=== PATIENT | male | born 1965 | race African-American/Black ===

== ENCOUNTER 2017-06-30 15:49 | Emergency (ER) | payer SELFPAY ==
[~2017-06-30 15:49] MED LIST: ISOVUE-370 76%-LOCM 1 ML ONE
[2017-06-30] MEDS ORDERED: niCARdipine 20MG In NaCl 20 MG/200 ML BAG ONE (16:17)
--- NOTE | 2017-06-30 16:24 | CT ---
NONCONTRAST HEAD CT: HISTORY: Stroke alert. Right-sided weakness last seen normal 20 minutes ago. Teeth numbness, starting 4 days ago. COMPARISON: None. TECHNIQUE: A noncontrast head CT is performed from the skull base to the skull vertex. FINDINGS: No parenchymal hemorrhage. No extraaxial hematoma. No midline shift. Basilar cisterns are patent. Brain volume is age appropriate. Cortical castorena-white matter differentiation appears to be preserved. Insular ribbon sign is preserved. Ventricles and sulci are patent and symmetric. There is hyperdensity involving the mid to distal left M1 segment along with hyperdensity in the left Sylvian fissure suggesting a left M1 thrombus. Better interrogation with CT angiogram of the head a nd neck as well as perfusion imaging is recommended. There is paranasal sinus disease. Calvarium is intact. Adequate aeration of the sinuses and mastoid air cells. IMPRESSION: 1. No hemorrhage. 2. No large territory infarction at this time. 3. Hyperdensity in the left middle cerebral artery suggesting thrombus. Better interrogation with C T angiogram of the head and neck as well as CT perfusion imaging is recommended. Results of the study discussed with Dr. Martinez 06/30/17 at 3:57 p.m. CODE CR POS: OFF
[2017-06-30 16:55] LABS: Hemoglobin 17.2 g/dL (14.0-18.0); Mean Corpuscular HGB CONC 33.8 g/dL (32.0-36.0); Mean Corpuscular Hemoglobin 29.7 pg (27.0-31.0); Mean Corpuscular Volume 87.7 fl (80.0-94.0); Mean Platelet Volume 7.4 fL (7.4-10.4); Platelet Count 271 thou/uL (130-400); Red Blood Cell (RBC) Count 5.79 mill/uL (4.70-6.10); White Blood Cell (WBC) Count 5.8 thou/uL (4.8-10.8)
--- NOTE | 2017-06-30 17:00 | CT ---
CTA NECK WITH 3D VOLUME RENDERING CTA BRAIN WITH 3D VOLUME RENDERING CTA BRAIN PERFUSION. 06/30/16 CLINICAL HISTORY: Right sided weakness. FINDINGS: There is limited assessment of the vasculature due to prominent beam attenuation from overlying body wall soft tissues which decreases sensitivity of evaluation. The imaged aortic arch is grossly patent as are the origins of the brachiocephalic trunk and left common carotid artery. There is calcificati on at the origin of the left subclavian artery with a mild to moderate degree of focal stenosis. Limi kizzy evaluation of the bilateral common carotid arteries reveals no obvious high grade stenosis or occ lusion. There is atherosclerotic calcification at each carotid bulb without high grade focal stenosis . The bilateral cervical ICA are grossly patent. The proximal mid vertebral arteries are not reliably assessed due to beam attenuation artifact. The visualized distal bilateral vertebral arteries reveal no definite high stenosis or occlusion. Partial termination of distal left vertebral artery and PICA. The basilar artery demonstrates a moderate charley gth segment of diminished to absent contrast concerning for basilar artery thrombosis. There are bila teral posterior communicating arteries which likely provides supply to the bilateral posterior cerebr al arteries. No definitive high grade stenosis of either MCA or ROSANNA. ACOM is grossly unremarkable. Evaluation of the CTA brain perfusion reveals no significant penumbra or completed infarction of the cerebral hemispheres within the bilateral MCA territories. IMPRESSION: Scattered at atherosclerotic vascular disease. Disease is likely most pronounced at the mid to distal basilar artery. Note is made that there is marked limitation due to beam attenuation, although the p ossibility of a moderate segment of acute basilar artery thrombus is not excluded. The appearance of the CT exam suggests supply to the posterior circulation, bilaterally via the anterior circulation th rough posterior communicating arteries. Scattered atherosclerotic vascular disease of the neck. No obvious penumbra or completed infarction of the bilateral cerebral hemispheres within the MCA dis tributions. Telephone call of findings placed to the neurosurgeon program professional, Jim Leal, 1610 hours, 06/30/17. Code CR POS: [facility]
[2017-06-30 17:05] LABS: ALT (SGPT) 26 U/L (8-55); AST (SGOT) 32 U/L (5-34); Alkaline Phosphatase 69 U/L (40-150); Anion Gap 12 mmol/L (10-20); BUN (Urea Nitrogen) 11 mg/dL (8.9-20.6); Bilirubin, Total 0.7 mg/dL (0.2-1.2); Calc. Creatinine Clearance 0 mL/min (70-130); Carbon Dioxide 21 mmol/L (22-29); Chloride 107 mmol/L (98-107); Estimated GFR-MDRD 61; Globulin 3.2 g/dL (2.4-3.5); Glucose 101 mg/dL (70-105); Potassium 4.4 mmol/L (3.5-5.1); Protein, Total 7.2 g/dL (6.0-8.3); Sodium 136 mmol/L (136-145)
[2017-06-30 17:15] LABS: Troponin I 0.599 ng/mL (< 0.028)
[2017-06-30 17:20] LABS: #Basophils 0.1 thou/uL (0.0-0.2); #Eosinphils 0.1 thou/uL (0.0-0.7); #Lymphocytes 2.5 thou/uL (1.20-3.40); #Monocytes 0.8 thou/uL (0.11-0.59); #Neutrophils 2.2 thou/uL (1.40-6.50); %Basophils 0.9 % (0.0-1.0); %Eosinophils 2.4 % (0.0-10.0); %Lymphocytes 44.3 % (21.0-51.0); %Monocytes 13.6 % (0.0-10.0); %Neutrophils 38.7 % (42.0-75.0); Lymphocytes 38 % (21-51); MDiff Complete? YES; Monocytes 14 % (0-10); Neutrophil 37 % (42-75); PLT Morphology Comment Appears Adequate; RBC Morphology Normal; Reactive Lymphocytes 10 % (0-10)
[2017-06-30] MEDS ORDERED: Enoxaparin Sodium 40 MG/0.4 ML SYRINGE ONE ×2 (17:48→18:18)
[2017-06-30] MEDS ORDERED: Enoxaparin Sodium 100 MG/ML SYRINGE ONE ×2 (17:48→18:18)
[2017-06-30 18:10] LABS: INR-International Normal Ratio 1.1; PTT 33.8 SEC (22.9-36.1); Prothrombin Time 13.9 SEC (12.0-14.7)
== END 2017-06-30 18:40 | disposition left against medical advice (07) ==
LOC: ERS 15:49
DX: I21.4 Non-ST elevation (NSTEMI) myocardial infarction (principal); I16.1 Hypertensive emergency; F17.210 Nicotine dependence, cigarettes, uncomplicated
CPT/HCPCS: 0042T; 36415; 70450; 70496; 70498; 80053; 82553; 83880; 84484; 85025; 85610; 85730; 93005; 96365; 96366; 99406; J1650

== ENCOUNTER 2017-12-16 09:17 | Emergency (ER) | payer SELFPAY ==
[2017-12-16 10:04] LABS: #Basophils 0.1 thou/uL (0.0-0.2); #Eosinphils 0.1 thou/uL (0.0-0.7); #Lymphocytes 2.5 thou/uL (1.20-3.40); #Monocytes 0.7 thou/uL (0.11-0.59); %Basophils 1.3 % (0.0-1.0); %Eosinophils 1.7 % (0.0-10.0); %Monocytes 12.4 % (0.0-10.0); %Neutrophils 37.6 % (42.0-75.0); Hemoglobin 17.1 g/dL (14.0-18.0); Mean Corpuscular HGB CONC 34.8 g/dL (32.0-36.0); Mean Corpuscular Hemoglobin 29.5 pg (27.0-31.0); Mean Corpuscular Volume 84.8 fL (78.0-98.0); Mean Platelet Volume 7.3 fL (7.4-10.4); Platelet Count 230 thou/uL (130-400); RBC Distribution Width 13.2 % (11.5-14.5); Red Blood Cell (RBC) Count 5.82 mill/uL (4.70-6.10); White Blood Cell (WBC) Count 5.4 thou/uL (4.8-10.8)
--- NOTE | 2017-12-16 10:13 | CT ---
CT BRAIN PERFORMED WITHOUT CONTRAST ENHANCEMENT: History: Dizziness, difficulty remembering, reports a fall yesterday. reports slurred speech, we akness on right side. Comparison: 06-30-17 FINDINGS: The ventricular and cisternal system is within normal limits. There are no signs of intracerebral hem orrhage or extraaxial fluid collections. Mastoid air cells are clear. Minimal mucosal change within t he maxillary sinuses. IMPRESSION: No acute intracranial abnormalities. POS: [facility]
[2017-12-16 10:16] LABS: ALT (SGPT) 41 U/L (8-55); AST (SGOT) 39 U/L (5-34); Alkaline Phosphatase 73 U/L (40-150); Anion Gap 14 mmol/L (10-20); BUN (Urea Nitrogen) 19 mg/dL (8.9-20.6); Bilirubin, Total 1.3 mg/dL (0.2-1.2); CK (CPK) 1460 U/L (30-200); Calc. Creatinine Clearance 0 mL/min (70-130); Calcium 9.9 mg/dL (7.8-10.44); Carbon Dioxide 29 mmol/L (22-29); Chloride 101 mmol/L (98-107); Estimated GFR-MDRD 64; Globulin 3.6 g/dL (2.4-3.5); Glucose 109 mg/dL (70-105); Potassium 3.8 mmol/L (3.5-5.1); Protein, Total 8.6 g/dL (6.0-8.3); Sodium 140 mmol/L (136-145)
[2017-12-16 10:20] LABS: CKMB 4.6 ng/mL (0-6.6); Troponin I 0.023 ng/mL (< 0.028)
== END 2017-12-16 12:55 | disposition home or self-care (01) ==
LOC: ERS 09:17
DX: I63.9 Cerebral infarction, unspecified (principal); I10 Essential (primary) hypertension; F17.210 Nicotine dependence, cigarettes, uncomplicated; Z79.899 Other long term (current) drug therapy; Z79.82 Long term (current) use of aspirin
CPT/HCPCS: 36416; 70450; 80053; 82550; 82553; 84484; 85025; 93005; 94760

== ENCOUNTER 2018-01-29 17:27 | Emergency (ER) | payer SELFPAY ==
--- NOTE | 2018-01-29 18:08 | RAD ---
RIGHT SHOULDER THREE VIEWS: 01/29/18 HISTORY: Shoulder pain status post fall. There is no signs of fracture or dislocation. IMPRESSION: Negative right shoulder. POS: [facility]
[2018-01-29] MEDS ORDERED: Ketorolac Tromethamine 30 MG/ML VIAL ONE (20:05)
== END 2018-01-29 20:20 | disposition home or self-care (01) ==
LOC: ERS 17:27
DX: M25.511 Pain in right shoulder (principal); F17.210 Nicotine dependence, cigarettes, uncomplicated; F41.9 Anxiety disorder, unspecified; Z79.899 Other long term (current) drug therapy; Z79.82 Long term (current) use of aspirin; Z86.73 Personal history of transient ischemic attack (TIA), and cerebral infarction without residual deficits; W19.XXXA Unspecified fall, initial encounter
CPT/HCPCS: 96372; J1885

== ENCOUNTER 2018-01-31 10:12 | Emergency (ER) | payer SELFPAY ==
[2018-01-31] MEDS ORDERED: HYDROcodone/Acetaminophen 5/325 mg Tablet ONE (10:49)
[2018-01-31 11:04] LABS: #Eosinphils 0.1 thou/uL (0.0-0.7); #Lymphocytes 2.4 thou/uL (1.20-3.40); #Monocytes 0.5 thou/uL (0.11-0.59); #Neutrophils 2.2 thou/uL (1.40-6.50); %Basophils 0.9 % (0.0-1.0); %Eosinophils 2.3 % (0.0-10.0); %Lymphocytes 45.5 % (21.0-51.0); %Monocytes 9.4 % (0.0-10.0); %Neutrophils 41.9 % (42.0-75.0); Hemoglobin 15.2 g/dL (14.0-18.0); Mean Corpuscular HGB CONC 34.2 g/dL (32.0-36.0); Mean Corpuscular Hemoglobin 28.9 pg (27.0-31.0); Mean Corpuscular Volume 84.5 fL (78.0-98.0); Mean Platelet Volume 6.9 fL (7.4-10.4); Platelet Count 326 thou/uL (130-400); Red Blood Cell (RBC) Count 5.26 mill/uL (4.70-6.10); White Blood Cell (WBC) Count 5.3 thou/uL (4.8-10.8)
[2018-01-31 11:40] LABS: ALT (SGPT) 20 U/L (8-55); AST (SGOT) 16 U/L (5-34); Albumin 4.2 g/dL (3.5-5.0); Alkaline Phosphatase 72 U/L (40-150); Anion Gap 11 mmol/L (10-20); BUN (Urea Nitrogen) 13 mg/dL (8.9-20.6); Bilirubin, Total 0.7 mg/dL (0.2-1.2); Calc. Creatinine Clearance 0 mL/min (70-130); Calcium 9.2 mg/dL (7.8-10.44); Carbon Dioxide 28 mmol/L (22-29); Chloride 103 mmol/L (98-107); Estimated GFR-MDRD 81; Globulin 3.1 g/dL (2.4-3.5); Glucose 109 mg/dL (70-105); Potassium 3.7 mmol/L (3.5-5.1); Protein, Total 7.3 g/dL (6.0-8.3); Sodium 138 mmol/L (136-145)
[2018-01-31 11:43] LABS: Troponin I Less than 0.010 ng/mL (< 0.028)
--- NOTE | 2018-01-31 11:59 | CT ---
CT BRAIN WITHOUT CONTRAST: History: Fall. Right sided weakness. FINDINGS: Comparison made with exam of 01-27-18. 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 No dislocation, acute infarct, hemorrhage, midline, or abnormal extraaxial fluid collections are seen. Ventricular size is stable and the basilar cisterns a re patent. The bony calvarium appears intact. The visualized paranasal sinuses and mastoid air cells are well aerated. IMPRESSION: No CT evidence of acute intracranial process. POS: [facility]
== END 2018-01-31 14:15 | disposition home or self-care (01) ==
LOC: ERS 10:12
DX: R53.1 Weakness (principal); I69.392 Facial weakness following cerebral infarction; I10 Essential (primary) hypertension; F17.210 Nicotine dependence, cigarettes, uncomplicated; Z79.82 Long term (current) use of aspirin; Z79.899 Other long term (current) drug therapy; W19.XXXA Unspecified fall, initial encounter
CPT/HCPCS: 36415; 70450; 80053; 82553; 84484; 85025; 93005

== ENCOUNTER 2018-07-07 09:19 | Outpatient (CLI) | payer MEDICAID ==
--- NOTE | 2018-07-07 10:48 | RAD ---
THERE VIEWS RIGHT SHOULDER: Comparison: None. History: Right shoulder pain. FINDINGS: Three views of the right shoulder shows no evidence of acute fracture or dislocation. No degenerative changes are seen. The visualized right thorax is unremarkable. IMPRESSION: No evidence of acute osseous abnormality. POS: [facility]
== END 2018-07-07 09:20 | disposition home or self-care (01) ==
LOC: BICRAD 09:19
PROVIDERS: ATTEND Internal Medicine
DX: M25.511 Pain in right shoulder (principal)

== ENCOUNTER 2018-12-05 12:54 | Outpatient (CLI) | payer OTHER ==
--- NOTE | 2018-12-05 15:15 | MRI ---
NONCONTRAST MRI LUMBAR SPINE: Date: 12/05/18 HISTORY: Hemiplegia, hemiparesis. Patient complains of generalized right-sided weakness and pain. Bilateral hi p pain. COMPARISON: None available. FINDINGS: Exam is mildly limited by technique. Visualized retroperitoneal structures are not well assessed on this exam, no gross abnormality is vis ualized. Conus medullaris is normal in appearance and terminates at the T12-L1 level. There is generalized heterogeneity of the bone marrow. Focus of increased T1 and T2-weighted signal i ntensity is seen in the L3 vertebral body, which may represent a hemangioma versus focal area of fat. L1-2 Level: There is no disc bulge or disc herniation. Central spinal canal and neural foramina are patent. L2-3 Level: There are mild facet degenerative changes. There is no disc bulge or disc herniation, an d the central spinal canal and neural foramina are patent. L3-4 Level: Again, there are mild facet degenerative changes, but there is no significant disc bulge or disc herniation. The central spinal canal and neural foramina are patent. L4-5 Level: No disc bulge or disc herniation, but there are moderate facet hypertrophic changes and mild ligamentous thickening. There is mild narrowing of the central spinal canal with mild to moderat e left-sided neural foraminal narrowing, and mild right-sided neural foraminal narrowing. L5-S1 Level: There is mild loss of intervertebral disc height. There is disc osteophyte complex pres ent which does encroach on the bilateral traversing S1 nerve roots, but does not appear to significan tly displace the nerve roots. There is no significant narrowing of the thecal sac at this level. Face t degenerative changes are present. There is no significant neural foraminal narrowing identified. IMPRESSION: 1. Facet degenerative changes at multiple levels, greatest at the L4-5 level, which results in mild to moderate left-sided neural foraminal narrowing. 2. Disc osteophyte complex at the L5-S1 level which encroaches on the bilateral traversing S1 nerve roots, but does not appear to displace the nerve root. POS: [facility]
--- NOTE | 2018-12-05 15:35 | MRI ---
MRI BRAIN WITHOUT CONTRAST: HISTORY: Hemiplegia and hemiparesis CORRELATION: CT scan from 01/31/2018. FINDINGS: No restricted diffusion is seen. There are multiple foci of T2 prolongation in the periventricular wh ite matter, consistent with chronic small vessel ischemic disease. The ventricular size is appropriate and the basilar cisterns are patent. No evidence of acute infarct, hemorrhage, midline shift or abnormal extra-axial fluid collections is seen. 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 There is mucosal disease in the paranasal sinuses. IMPRESSION: No evidence of acute intracranial process.
== END 2018-12-05 12:55 | disposition home or self-care (01) ==
LOC: BICMRI 12:54
PROVIDERS: ATTEND Anesthesiology Pain Medicine
DX: I69.359 Hemiplegia and hemiparesis following cerebral infarction affecting unspecified side (principal); Z79.891 Long term (current) use of opiate analgesic; Z68.37 Body mass index [BMI] 37.0-37.9, adult; Z82.3 Family history of stroke
CPT/HCPCS: 70551; 72148

== ENCOUNTER 2018-12-24 00:20 | Emergency (ER) | payer OTHER ==
[2018-12-24] MEDS ORDERED: Dexamethasone 10 MG/ML VIAL ONE (00:51)
== END 2018-12-24 01:37 | disposition home or self-care (01) ==
LOC: ERS 00:20
DX: J02.9 Acute pharyngitis, unspecified (principal); I10 Essential (primary) hypertension; F41.9 Anxiety disorder, unspecified; F17.210 Nicotine dependence, cigarettes, uncomplicated; Z86.73 Personal history of transient ischemic attack (TIA), and cerebral infarction without residual deficits
CPT/HCPCS: 87081; 87430; 96372; 99283; J1100

== ENCOUNTER 2019-03-15 20:59 | Emergency (ER) | payer OTHER ==
[2019-03-15] MEDS ORDERED: Dexamethasone 4 mg/ml Vial ONE (22:16)
== END 2019-03-15 22:31 | disposition home or self-care (01) ==
LOC: ERS 20:59
DX: J02.9 Acute pharyngitis, unspecified (principal); R05 Cough; I10 Essential (primary) hypertension; F41.9 Anxiety disorder, unspecified; F17.210 Nicotine dependence, cigarettes, uncomplicated; Z79.82 Long term (current) use of aspirin; Z79.899 Other long term (current) drug therapy; Z86.73 Personal history of transient ischemic attack (TIA), and cerebral infarction without residual deficits
CPT/HCPCS: 87081; 87430; 99283; J1100

== ENCOUNTER 2021-02-19 07:32 | Outpatient (CLI) | payer OTHER ==
[2021-02-19 10:31] LABS: Hemoglobin 14.9 g/dL (13.5-17.5); Mean Corpuscular Hemoglobin 28.1 pg (27.0-33.0); Mean Corpuscular Volume 80.2 fl (81.2-95.1); Mean Platelet Volume 10.3 fl (7.4-10.4); Platelet Count 331 10x3/uL (150-450); RBC Distribution Width 14.7 % (11.5-14.5); Red Blood Cell (RBC) Count 5.31 10x6/uL (4.32-5.72)
[2021-02-19 10:50] LABS: Anion Gap 13 mmol/L (10-20); BUN (Urea Nitrogen) 10 mg/dL (8.4-25.7); Calc. Creatinine Clearance 0 mL/min (70-130); Calcium 9.4 mg/dL (7.8-10.44); Carbon Dioxide 27 mmol/L (22-29); Chloride 104 mmol/L (98-107); Glucose 158 mg/dL (70-105); Potassium 4.4 mmol/L (3.5-5.1); Sodium 140 mmol/L (136-145)
[2021-02-19 23:38] LABS: SARS-CoV-2 PCR by NAA Not Detected (NotDetected)
== END 2021-02-19 07:33 | disposition home or self-care (01) ==
LOC: LABBT 07:32
PROVIDERS: ATTEND Urology
DX: Z01.818 Encounter for other preprocedural examination (principal); N48.1 Balanitis; Z20.822 Contact with and (suspected) exposure to COVID-19
CPT/HCPCS: 80048; 85027; 93005; 93010; U0003; U0005

== ENCOUNTER 2021-02-21 06:19 | Day surgery (SDC) | payer OTHER ==
[2021-02-20 13:05] VITALS: BMI 41.1
[2021-02-21] MEDS ORDERED: Fentanyl 100 MCG/2 ML VIAL ONE (07:06)
[2021-02-21] MEDS ORDERED: Midazolam HCl 2 mg/2 ml Vial ONE (07:06)
[2021-02-21] MEDS ORDERED: HYDROmorphone 2 MG/ML VIAL ONE (07:07)
[2021-02-21] MEDS ORDERED: ceFAZolin 2 GM/DEX 5% 100 ML BAG ONE (07:24)
[2021-02-21] MEDS ORDERED: Bupivacaine 0.25% HCL 30 ML VIAL ONE ×2 (07:59→08:10)
[2021-02-21] MEDS ORDERED: Dexamethasone 20 MG/5 ML VIAL ONE (08:16)
[2021-02-21] MEDS ORDERED: Ondansetron PF 4 MG/2 ML Vial ONE (08:16)
[2021-02-21] MEDS ORDERED: Glycopyrrolate 0.2 MG/ML 5 ML SYRINGE ONE (08:16)
[2021-02-21] MEDS ORDERED: PHENYLEPHRINE-NS 100 MCG/ML 10 ML SYRINGE ONE (08:16)
[2021-02-21] MEDS ORDERED: Lidocaine 1% PF 5 ML VIAL ONE (08:16)
[2021-02-21] MEDS ORDERED: PROPOFOL 200 MG/20 ML VIAL ONE (08:16)
[2021-02-21] MEDS ORDERED: Bacitracin Zinc Ointment 30 gm TUBE ONE (08:40)
== END 2021-02-21 10:40 | disposition home or self-care (01) ==
LOC: SDC 06:19
PROVIDERS: ATTEND Urology
PROC: 0VTTXZZ Resection of Prepuce, External Approach (ICD-10-PCS; principal; 2021-02-21)
DX: N47.1 Phimosis (principal); N48.1 Balanitis; I10 Essential (primary) hypertension; F17.200 Nicotine dependence, unspecified, uncomplicated; Z79.82 Long term (current) use of aspirin; Z79.84 Long term (current) use of oral hypoglycemic drugs; Z79.899 Other long term (current) drug therapy
CPT/HCPCS: J1100; J1170; J2250; J2405; J2704; J3010; S0020

== ENCOUNTER 2023-02-17 10:55 | Outpatient (CLI) | payer OTHER | END 2023-02-17 10:56 | disposition home or self-care (01) | PROVIDERS: ATTEND Student in an Organized Health Care Education/Training Program | DX: R26.89 Other abnormalities of gait and mobility (principal) ==

== ENCOUNTER 2023-04-14 17:31 | Emergency (ER) | payer OTHER ==
[2023-04-14 18:24] LABS: Bacteria/HPF None Seen HPF (None Seen); Bilirubin Negative (Negative); Blood, Urine Negative (Negative); Clarity Clear (Clear); Glucose, Urine (Dipstick) Normal (Negative); Ketone, Urine Negative (Negative); Leukocyte 250 Leu/uL (Negative); Nitrite Negative (Negative); Protein, Urine (Dipstick) 10 mg/dL (Neg-Trace); RBC/HPF 0-3 HPF (0-3); Specific Gravity, Urine 1.032 (1.002-1.036); Squamous Epithelial 0-3 HPF (0-3); pH, Urine 5.5 (5.0-9.0)
[2023-04-14 19:14] LABS: SARS-CoV-2 NAA Rapid Test Not Detected (NotDetected)
[2023-04-15 00:35] LABS: Chlam.trachomatis by PCR,Urine Not Detected (NotDetected); GC N.gonorrhoeae PCR,UrineVOID Not Detected (NotDetected)
== END 2023-04-14 19:29 | disposition home or self-care (01) ==
LOC: ERS 17:31
DX: N39.0 Urinary tract infection, site not specified (principal); R05.9 Cough, unspecified; I10 Essential (primary) hypertension; F17.210 Nicotine dependence, cigarettes, uncomplicated; Z79.899 Other long term (current) drug therapy; Z79.82 Long term (current) use of aspirin; Z79.84 Long term (current) use of oral hypoglycemic drugs; Z20.822 Contact with and (suspected) exposure to COVID-19
CPT/HCPCS: 81001; 87491; 87591; 99283